=== PATIENT | female | born 1950 | race Caucasian/White ===

== ENCOUNTER 2017-04-28 20:22 | Observation (INO) | payer OTHER ==
[~2017-04-28] VITALS: Ht 162.6 cm; Wt 102.5 kg
--- NOTE | ~2017-04-28 | EKG ---
[address] [address] ELECTROCARDIOGRAM REPORT Name: MAUREEN GRACE Room #: 247-P [facility].R.#: [id number] Admission: 04/28/17 Attend Phys: Doug Jackson MD Discharge: Date of : 54 Report #: [id number] THIS REPORT FOR: //name// [facility] ED Test Date: 2017-04-28 Test Time: 21:06:51 Pat Name: MAUREEN GRACE Department: Room: [facility] Gender: F [employer]: MALGORZATA : 1950 Requested By: Nolan Garnica Order Number: [id number] MD: Fredy Pearce Measurements Intervals [place] Rate: 73 P: 46 TN: 134 QRS: 27 QRSD: 108 T: 51 QT: 388 QTc: 428 Interpretive Statements Sinus rhythm No previous ECG available for comparison Electronically Signed On 04-29-2017 13:16:52 CDT by Fredy Pearce [email or web address] <ELECTRONICALLY SIGNED> By: Fredy Pearce MD 04/29/17 1316 210 MD DANIELLE Xiong
[~2017-04-28 20:22] MED LIST: ACIPHEX 20 MG T20 M1 PO; CIPROFLOXACIN500 M1 PO; CRESTOR10 MG PO; LEXAPRO20 MG PO; LISINOPRIL10 MG PO; NORCO 5-325 TA1 EACH PO
[2017-04-28 20:24] VITALS: BP 168/98
[2017-04-28] MEDS ORDERED: AMPHETAMINE SAL30 MG PO (20:29)
[2017-04-28] MEDS ORDERED: SERTRALINE HCL100 MG PO (20:29)
[2017-04-28] MEDS ORDERED: BYSTOLIC 5 MG5 M1 PO (20:29)
[2017-04-28 22:06] LABS: ABSOLUTE NEUTROPHILS 8.8 thou/uL (1.4-8.2); BASOPHILS 0.6 % (0.0-2.0); EOSINOPHILS 1.4 % (0.0-3.0); HEMATOCRIT 39.9 % (37.0-47.0); HEMOGLOBIN 13.4 gm/dL (12.0-15.0); LYMPHOCYTES 21.4 % (24.0-44.0); MCH 30.8 pg (26.0-34.0); MCHC 33.6 g/dL (28.0-37.0); MCV 91.5 fL (80.0-100.0); MONOCYTES 6.1 % (1.0-8.0); PLATELET COUNT 222 thou/uL (150-400); POLYS 70.5 % (36.0-66.0); RBC 4.36 mil/uL (4.20-5.00); RDW 13.4 % (10.5-14.5); WBC 12.5 thou/uL (4.0-11.0)
[2017-04-28 22:07] LABS: MANUAL DIFF NO
[2017-04-28 22:11] LABS: CALCIUM 8.6 mg/dL (8.5-10.1); CREATININE 0.9 mg/dL (0.6-1.0); POTASSIUM 3.8 mmol/L (3.5-5.1)
[2017-04-28 22:16] LABS: ALBUMIN 3.5 g/dL (3.4-5.0); TOTAL BILIRUBIN 0.2 mg/dL (<0.1-1.0); TOTAL PROTEIN 7.1 g/dL (6.4-8.2)
[2017-04-28 22:43] VITALS: BP 145/76
[2017-04-28 23:32] VITALS: BP 139/80
[2017-04-28 23:48] VITALS: BP 146/79
[2017-04-29] VITALS (37 sets, daily range): BP systolic 104–161; BP diastolic 60–117
[2017-04-30] VITALS: BP 131/73
[2017-04-30 04:00] VITALS: BP 150/93
[2017-04-30 06:15] LABS: HEMATOCRIT 38.6 % (37.0-47.0); MCH 30.2 pg (26.0-34.0); MCHC 33.6 g/dL (28.0-37.0); MCV 89.8 fL (80.0-100.0); RBC 4.3 mil/uL (4.20-5.00); RDW 13.8 % (10.5-14.5); WBC 15.9 thou/uL (4.0-11.0)
[2017-04-30 06:31] LABS: CREATININE 0.9 mg/dL (0.6-1.0); POTASSIUM 3.9 mmol/L (3.5-5.1)
[2017-04-30 08:00] VITALS: BP 124/77
[2017-04-30] MEDS ORDERED: MEDROL DOSPAK21 TA1 PO (10:04)
[2017-04-30 10:11] VITALS: BP 124/77
== END 2017-04-30 11:48 | disposition home or self-care (01) ==
LOC: ER 20:22 → 3N 22:07 → EROBS 22:07 → 3N 23:05 → ICU 23:05 → 3N 04-29 13:30
PROVIDERS: Emergency Medicine; Family Medicine
DX: T50.995A Adverse effect of other drugs, medicaments and biological substances, initial encounter (principal); T78.3XXA Angioneurotic edema, initial encounter; R10.9 Unspecified abdominal pain; E87.6 Hypokalemia; N39.0 Urinary tract infection, site not specified; Z72.89 Other problems related to lifestyle; Y92.89 Other specified places as the place of occurrence of the external cause
CPT/HCPCS: 23019; 23020; 23029; 23031

== ENCOUNTER 2018-07-28 09:10 | Emergency (ER) | payer BC ==
[~2018-07-28] VITALS: Ht 160 cm; Wt 102.5 kg
[~2018-07-28 09:10] MED LIST changes: +AMPHETAMINE SAL30 MG PO; +BYSTOLIC 5 MG5 M1 PO; +MEDROL DOSPAK21 TA1 PO; +SERTRALINE HCL100 MG PO
[2018-07-28] MEDS ORDERED: BYSTOLIC 5 MG5 MG PO (09:32)
[2018-07-28] MEDS ORDERED: NORCO 10-325 T1 EACH PO (10:13)
[2018-07-28] MEDS ORDERED: CRUTCHES MISCELL (10:16)
[2018-07-28 10:34] VITALS: BP 144/87
== END 2018-07-28 10:58 | disposition home or self-care (01) ==
LOC: ER 09:10
DX: M25.562 Pain in left knee (principal); G43.909 Migraine, unspecified, not intractable, without status migrainosus; K21.9 Gastro-esophageal reflux disease without esophagitis; Z90.710 Acquired absence of both cervix and uterus; Z85.820 Personal history of malignant melanoma of skin; Z86.73 Personal history of transient ischemic attack (TIA), and cerebral infarction without residual deficits; Z88.8 Allergy status to other drugs, medicaments and biological substances